=== PATIENT | male | born 1985 | race Two or more races ===

== ENCOUNTER 2017-01-27 10:52 | Inpatient (IN) | payer OTHER ==
[2017-01-27 11:40] VITALS: BMI 25.4
--- NOTE | 2017-01-27 12:33 | HP ---
CIWA Score - CIWA Score Nausea/Vomitin Muscle Tremors: 3 Anxiety: 3 Agitation: 3 Paroxysmal Sweats: 1-Minimal Palms Moist Orientation: 0-Oriented Tacttile Disturbances: 2-Mild Itch/Numbness/Burn Auditory Disturbances: 2-Mild Harshness/Frighten Visual Disturbances: 2-Mild Sensitivity Headache: 2-Mild CIWA-Ar Total Score: 21 Admission ROS [facility] - HPI Chief Complaint: I NEED HELP TO STOP DRINKING ALCOHOL Allergies/Adverse Reactions: Allergies Allergy/AdvReac Type Severity Reaction Status Date / Time No Known Allergies Allergy Verified 01/27/17 11:44 History of Present Illness: THIS 31 YEARS OLD MALE WITH ALCOHOL DEPENDENCE,SEEKING DETOX FROM ALCOHOL,LAST DETOX [facility] IN 12/28 SEIZURE ALCOHOL RELATED SEVERAL ADMISSIONS IN DETOX NO SIGNIFICANT PERIOD OF SOBRIETY - Ebola screening Have you traveled outside of the country in the last 21 days: No Have you had contact with anyone from an Ebola affected area: No Have you been sick,other than usual withdrawal symptoms: No - Review of Systems Constitutional: Loss of Appetite, Malaise, Night Sweats, Changes in sleep, Weakness EENT: reports: Nose Congestion Respiratory: reports: No Symptoms reported Cardiac: reports: Palpitations GI: reports: Diarrhea, Nausea, Vomiting, Abdominal cramping : reports: No Symptoms Reported Musculoskeletal: reports: Back Pain, Muscle Pain Integumentary: reports: Dryness Neuro: reports: Headache, Tremors Endocrine: reports: No Symptoms Reported Hematology: reports: No Symptoms Reported Psychiatric: reports: Anxious, Depressed Patient History - Patient Medical History Hx Anemia: No Hx Asthma: No Hx Chronic Obstructive Pulmonary Disease (COPD): No Hx Cancer: No Hx Cardiac Disorders: No Hx Congestive Heart Failure: No Hx Hypertension: No Hx Hypercholesterolemia: No Hx Pacemaker: No HX Cerebrovascular Accident: No Hx Seizures: Yes (etoh related last was 4 days ago) Hx Dementia: No Hx Diabetes: No Hx Gastrointestinal Disorders: No Hx Liver Disease: No Hx Genitourinary Disorders: No Hx Sexually Transmitted Disorders: No Hx Renal Disease (ESRD): No Hx Thyroid Disease: No Hx Human Immunodeficiency Virus (HIV): No (LAST 08/28) Hx Hepatitis C: No Hx Depression: Yes (ANXIETY) Hx Suicide Attempt: No Hx Bipolar Disorder: No Hx Schizophrenia: No Other Medical History: NO SUICIDAL,NO HOMICIDAL - Patient Surgical History Past Surgical History: No - PPD History Previous Implant?: Yes Documented Results: Negative w/o proof Implanted On Prior [facility] Admission?: No PPD to be Administered?: Yes - Smoking Cessation Smoking history: Current every day smoker Have you smoked in the past 12 months: Yes Aproximately how many cigarettes per day: 20 Hx Chewing Tobacco Use: No Initiated information on smoking cessation: Yes 'Breaking Loose' booklet given: 01/27/17 - Substance & Tx. History Hx Alcohol Use: Yes Hx Substance Use: No Substance Use Type: Alcohol Hx Substance Use Treatment: No - Substances Abused Alcohol Route: Oral Frequency: Daily Amount used: 1/2 liter vodka Age of first use: 16 Date of Last Use: 01/27/17 Family Disease History - Family Disease History Family History: Denies Admission Physical Exam [facility] - Vital Signs Vital Signs: Vital Signs - 24 hr 01/27/17 11:38 Temperature 99.4 F Pulse Rate 106 H Respiratory 20 Rate Blood Pressure 149/93 - Physical General Appearance: Yes: Moderate Distress, Tremorous, Irritable, Sweating, Anxious HEENTM: Yes: Normal ENT Inspection, [place], Pharynx Normal Respiratory: Yes: Within Normal Limits, Lungs Clear, No Respiratory Distress Neck: Yes: Within Normal Limits, Supple, Trachea in good position Breast: Yes: Within Normal Limits Cardiology: Yes: Tachycardia Abdominal: Yes: Within Normal Limits, Normal Bowel Sounds, Non Tender, Flat, Soft Genitourinary: Yes: Within Normal Limits Back: Yes: Normal Inspection, Muscle Spasm Musculoskeletal: Yes: full range of Motion, Back pain, Muscle Pain Extremities: Yes: Tremors Neurological: Yes: foot roentgenologist II-XII NML intact, Fully Oriented, Alert, Motor Strength 5/5 Integumentary: Yes: Dry Lymphatic: Yes: Within Normal Limits - Diagnostic (1) Alcohol dependence with uncomplicated withdrawal Current Visit: Yes Status: Acute (2) Alcohol dependence with uncomplicated intoxication Current Visit: Yes Status: Acute (3) Alcohol related seizure Current Visit: Yes Status: Acute (4) Syncope Current Visit: Yes Status: Acute (5) Nicotine dependence Current Visit: Yes Status: Acute (6) Anxiety and depression Current Visit: Yes Status: Acute Cleared for Admission [facility] - Detox or Rehab [facility] Level of Care: Medically Managed Detox Regimen/Protocol: Librium [facility] Breath Alcohol Content Breath Alcohol Content: 0.325 Urine Drug Screen - Results Drug Screen Negative: No Urine Drug Screen Results: BZO-Benzodiazepines
[2017-01-27] MEDS ORDERED: guaiFENesin/D-METHORPHAN HB 10 ML UNIT-DOSE CUPS PO PRN (12:41)
[2017-01-27] MEDS ORDERED: hydrOXYzine PAMOATE 50 MG CAPSULE (FP) PO PRN (12:41)
[2017-01-27] MEDS ORDERED: LOPERAMIDE HCL 2 MG CAPSULE PO PRN (12:41)
[2017-01-27] MEDS ORDERED: MAGNESIUM CITRATE 300 ML BOTTLE PO PRN (12:41)
[2017-01-27] MEDS ORDERED: MENTHOL/PHENOL 1 EACH UD MM PRN (12:41)
[2017-01-27] MEDS ORDERED: P-EPHED 60MG/TRIPROLIDI 2.5MG TABLET PO PRN (12:41)
[2017-01-27] MEDS ORDERED: IBUPROFEN 400 MG TABLET (FP) PO PRN (12:41)
[2017-01-27] MEDS ORDERED: chlordiazePOXIDE HCL 25 MG CAPSULE PO PRN (12:41)
[2017-01-27] MEDS ORDERED: MAGNESIUM HYDROX 2400MG/30ML ORAL SUSPENSION 30 ML CUP PO PRN (12:41)
[2017-01-27] MEDS ORDERED: ACETAMINOPHEN 325 MG TABLET (FP) PO PRN (12:41)
[2017-01-27] MEDS ORDERED: chlordiazePOXIDE HCL 25 MG CAPSULE PO ONE (12:45)
[2017-01-27] MEDS: NICOTINE 21 MG/24 HOURS TOPICAL PATCH TD SCH (13:27)
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
[2017-01-27] MEDS: MAG HYDROX/AL HYDROX/SIMETH 30 ML UNIT-DOSE CUP PO PRN ×2 (16:09→22:17)
[2017-01-27] MEDS: chlordiazePOXIDE HCL 25 MG CAPSULE PO SCH ×2 (17:08→22:16)
[2017-01-27] MEDS: NICOTINE POLACRILEX 2 MG GUM BUC PRN (17:11)
[2017-01-27 17:52] LABS: URINE APPEARANCE CLEAR; URINE BILIRUBIN NEGATIVE (NEGATIVE); URINE COLOR YELLOW; URINE GLUCOSE (UA) NEGATIVE (NEGATIVE); URINE KETONE NEGATIVE (NEGATIVE); URINE LEUK ESTERASE NEGATIVE (NEGATIVE); URINE NITRITE NEGATIVE (NEGATIVE); URINE PROTEIN NEGATIVE (NEGATIVE); URINE UROBILINOGEN 2.0 E.U/dl E.U./dl (0.2-1.0)
[2017-01-27 17:58] LABS: URINE BLOOD 1+ (NEGATIVE)
[2017-01-27 17:59] LABS: URINE WBC 1 /hpf (3-5)
[2017-01-27] MEDS ORDERED: RANITIDINE HCL 150 MG TABLET (FP) PO ONE (19:00)
[2017-01-27] MEDS: QUEtiapine FUMARATE 50 MG TABLET PO SCH (22:16)
[2017-01-27] MEDS: diphenhydrAMINE HCL 50 MG CAPSULE PO PRN (22:16)
[2017-01-27] MEDS: THIAMINE HCL 100 MG TABLET (FP) PO SCH (22:16)
[2017-01-28] MEDS: chlordiazePOXIDE HCL 25 MG CAPSULE PO SCH ×4 (05:13→22:18)
[2017-01-28] MEDS: MAG HYDROX/AL HYDROX/SIMETH 30 ML UNIT-DOSE CUP PO PRN ×2 (05:14→15:32)
[2017-01-28] MEDS ORDERED: TETRAHYDROZOLINE HCL 1 DROP DROPS OU PRN (08:42)
[2017-01-28 10:18] LABS: ALBUMIN 3.6 g/dl (3.4-5.0); ALK PHOS 175 U/L (45-117); ANION GAP 11 (8-16); CALCIUM 9.1 mg/dL (8.5-10.1); CO2 30 mmol/L (21-32); COCKROFT - GAULT 144.92; CREATININE 0.8 mg/dL (0.7-1.3); GLUCOSE,RANDOM 67 mg/dL (74-106); SGOT/AST 322 U/L (15-37); SGPT/ALT 276 U/L (12-78); TOT PROT 6.6 g/dl (6.4-8.2)
[2017-01-28] MEDS: PRENATAL VITAMINS W/ FOLIC ACID TABLET (FP) PO SCH (10:22)
[2017-01-28] MEDS: NICOTINE 21 MG/24 HOURS TOPICAL PATCH TD SCH (10:24)
[2017-01-28 10:27] LABS: MCH 31.8 pg (25.7-33.7); MCHC 33.6 g/dl (32.0-35.9); MEAN CELL VOLUME 94.6 fl (80-96); PLATELET COUNT 61 K/MM3 (134-434); RDW 14.5 % (11.9-15.9); WHITE BLOOD COUNT 4.5 K/mm3 (4.0-10.0)
--- NOTE | 2017-01-28 11:39 | EKG ---
Test Reason : Blood Pressure : / mmHG Vent. Rate : 091 BPM Atrial Rate : 091 BPM P-R Int : 138 ms QRS Dur : 092 ms QT Int : 336 ms P-R-T Axes : 070 067 057 degrees QTc Int : 413 ms NORMAL SINUS RHYTHM NORMAL ECG NO PREVIOUS ECGS AVAILABLE Confirmed by ARNAV OTT, MARLENY ([id number]) on 01/28/2017 11:38:43 AM Referred By: Confirmed By:MARLENY JOSÉ MD
--- NOTE | 2017-01-28 12:52 | PN ---
[facility] CIWA - CIWA Score Nausea/Vomitin-Mild Nausea/No Vomiting Muscle Tremors: 4-Moderate,w/Arms Extend Anxiety: 4-Mod. Anxious/Guarded Agitation: 3 Paroxysmal Sweats: 3 Orientation: 0-Oriented Tacttile Disturbances: 3-Moderate Itch/Numb/Burn Auditory Disturbances: 0-None Visual Disturbances: 3-Moderate Sensitivity Headache: 0-None Present CIWA-Ar Total Score: 21 S Progress Note (SOAP) Subjective: Tremors, Dry Eyes, Diarrhea, Interrupted Sleep. Objective: PT. A & O X 3, OBSERVED AMBULATING ON UNIT. 01/28/17 12:49 Vital Signs Temperature 96.6 F L 01/28/17 09:39 Pulse Rate 95 H 01/28/17 09:39 Respiratory Rate 20 01/28/17 09:39 Blood Pressure 143/84 01/28/17 09:39 O2 Sat by Pulse Oximetry (%) Laboratory Last Values WBC 4.5 K/mm3 (4.0-10.0) 01/28/17 07:00 RBC 4.57 M/mm3 (4.00-5.60) 01/28/17 07:00 Hgb 14.6 GM/dL (11.7-16.9) 01/28/17 07:00 Hct 43.3 % (35.4-49) 01/28/17 07:00 MCV 94.6 fl (80-96) 01/28/17 07:00 MCHC 33.6 g/dl (32.0-35.9) 01/28/17 07:00 RDW 14.5 % (11.9-15.9) 01/28/17 07:00 Plt Count 61 K/MM3 (134-434) L 01/28/17 07:00 MPV 9.0 fl (7.5-11.1) 01/28/17 07:00 Sodium 141 mmol/L (136-145) 01/28/17 07:00 Potassium 3.4 mmol/L (3.5-5.1) L 01/28/17 07:00 Chloride 100 mmol/L (98-107) 01/28/17 07:00 Carbon Dioxide 30 mmol/L (21-32) 01/28/17 07:00 Anion Gap 11 (8-16) 01/28/17 07:00 BUN 8 mg/dL (7-18) 01/28/17 07:00 Creatinine 0.8 mg/dL (0.7-1.3) 01/28/17 07:00 Creat Clearance w eGFR > 60 (>60) 01/28/17 07:00 Random Glucose 67 mg/dL (74-106) L 01/28/17 07:00 Calcium 9.1 mg/dL (8.5-10.1) 01/28/17 07:00 Total Bilirubin 1.0 mg/dL (0.2-1.0) 01/28/17 07:00 AST 322 U/L (15-37) H 01/28/17 07:00 ALT 276 U/L (12-78) H 01/28/17 07:00 Alkaline Phosphatase 175 U/L (45-117) H 01/28/17 07:00 Total Protein 6.6 g/dl (6.4-8.2) 01/28/17 07:00 Albumin 3.6 g/dl (3.4-5.0) 01/28/17 07:00 Urine Color Yellow 01/27/17 14:35 Urine Appearance Clear 01/27/17 14:35 Urine pH 7.0 (5.0-8.0) 01/27/17 14:35 Ur Specific [place] <= 1.005 (1.005-1.025) 01/27/17 14:35 Urine Protein Negative (NEGATIVE) 01/27/17 14:35 Urine Glucose (UA) Negative (NEGATIVE) 01/27/17 14:35 Urine Ketones Negative (NEGATIVE) 01/27/17 14:35 Urine Blood 1+ (NEGATIVE) H 01/27/17 14:35 Urine Nitrite Negative (NEGATIVE) 01/27/17 14:35 Urine Bilirubin Negative (NEGATIVE) 01/27/17 14:35 Urine Urobilinogen 2.0 e.u/dl E.U./dl (0.2-1.0) 01/27/17 14:35 Ur Leukocyte Esterase Negative (NEGATIVE) 01/27/17 14:35 Urine RBC None /hpf (0-3) 01/27/17 14:35 Urine WBC 1 /hpf (3-5) 01/27/17 14:35 LABS NOTED. Assessment: 01/28/17 12:51 WITHDRAWAL SYMPTOMS. Plan: CONTINUE DETOX. K, 20 MEQ PO X 1 NOW, THEN 20 MEQ PO BID AFTER. ADVISED PATIENT TO FOLLOW-UP WITH PHARMACOLOGIST AFTER DISCHARGE FROM DETOX FOR GENERAL MEDICAL ASSESSMENT AND FOR ABNORMAL DETOX ADMISSION LAB VALUES.
[2017-01-28] MEDS ORDERED: POTASSIUM CHLORIDE TABS 20 MEQ TABLET.ER (FP) PO ONE (13:15)
[2017-01-28] MEDS: POTASSIUM CHLORIDE TABS 20 MEQ TABLET.ER (FP) PO SCH (17:17)
[2017-01-28] MEDS: THIAMINE HCL 100 MG TABLET (FP) PO SCH (22:18)
[2017-01-28] MEDS: QUEtiapine FUMARATE 50 MG TABLET PO SCH (22:18)
[2017-01-28] MEDS: diphenhydrAMINE HCL 50 MG CAPSULE PO PRN (22:19)
[2017-01-29] MEDS: chlordiazePOXIDE HCL 25 MG CAPSULE PO SCH ×2 (05:28→10:10)
[2017-01-29] MEDS: MAG HYDROX/AL HYDROX/SIMETH 30 ML UNIT-DOSE CUP PO PRN ×3 (05:30→17:27)
[2017-01-29] MEDS: NICOTINE POLACRILEX 2 MG GUM BUC PRN ×2 (07:42→09:42)
[2017-01-29] MEDS: POTASSIUM CHLORIDE TABS 20 MEQ TABLET.ER (FP) PO SCH ×2 (10:10→17:24)
[2017-01-29] MEDS: NICOTINE 21 MG/24 HOURS TOPICAL PATCH TD SCH (10:10)
[2017-01-29] MEDS: PRENATAL VITAMINS W/ FOLIC ACID TABLET (FP) PO SCH (10:10)
[2017-01-29 10:18] LABS: BASOPHIL 0.4 % (0-2.0); EOSINOPHIL 1.1 % (0-4.5); MCH 31.7 pg (25.7-33.7); MCHC 33.4 g/dl (32.0-35.9); MEAN CELL VOLUME 94.9 fl (80-96); MEAN PLT VOLUME 9.5 fl (7.5-11.1); NEUTROPHILS 67.1 % (42.8-82.8); PLATELET COUNT 71 K/MM3 (134-434); RDW 14.7 % (11.9-15.9); WHITE BLOOD COUNT 4.3 K/mm3 (4.0-10.0)
--- NOTE | 2017-01-29 12:06 | PN ---
[facility] CIWA - CIWA Score Nausea/Vomitin Muscle Tremors: 4-Moderate,w/Arms Extend Anxiety: 4-Mod. Anxious/Guarded Agitation: 2 Paroxysmal Sweats: 3 Orientation: 0-Oriented Tacttile Disturbances: 0-None Auditory Disturbances: 3-Moderate Harsh/Frighten Visual Disturbances: 2-Mild Sensitivity Headache: 0-None Present CIWA-Ar Total Score: 20 BHS Progress Note (SOAP) Subjective: Tremors, Back Ache, Interrupted Sleep, Sweating. Objective: PT. A & O X 3, OBSERVED AMBULATING ON UNIT. 01/29/17 12:01 Vital Signs Temperature 98.4 F 01/29/17 09:58 Pulse Rate 91 H 01/29/17 09:58 Respiratory Rate 18 01/29/17 09:58 Blood Pressure 130/81 01/29/17 09:58 O2 Sat by Pulse Oximetry (%) Laboratory Last Values WBC 4.3 K/mm3 (4.0-10.0) 01/29/17 07:00 RBC 4.97 M/mm3 (4.00-5.60) 01/29/17 07:00 Hgb 15.8 GM/dL (11.7-16.9) 01/29/17 07:00 Hct 47.2 % (35.4-49) 01/29/17 07:00 MCV 94.9 fl (80-96) 01/29/17 07:00 MCHC 33.4 g/dl (32.0-35.9) 01/29/17 07:00 RDW 14.7 % (11.9-15.9) 01/29/17 07:00 Plt Count 71 K/MM3 (134-434) L 01/29/17 07:00 MPV 9.5 fl (7.5-11.1) 01/29/17 07:00 Neutrophils % 67.1 % (42.8-82.8) 01/29/17 07:00 Lymphocytes % 21.7 % (8-40) 01/29/17 07:00 Monocytes % 9.7 % (3.8-10.2) 01/29/17 07:00 Eosinophils % 1.1 % (0-4.5) 01/29/17 07:00 Basophils % 0.4 % (0-2.0) 01/29/17 07:00 Sodium 141 mmol/L (136-145) 01/28/17 07:00 Potassium 3.4 mmol/L (3.5-5.1) L 01/28/17 07:00 Chloride 100 mmol/L (98-107) 01/28/17 07:00 Carbon Dioxide 30 mmol/L (21-32) 01/28/17 07:00 Anion Gap 11 (8-16) 01/28/17 07:00 BUN 8 mg/dL (7-18) 01/28/17 07:00 Creatinine 0.8 mg/dL (0.7-1.3) 01/28/17 07:00 Creat Clearance w eGFR > 60 (>60) 01/28/17 07:00 Random Glucose 67 mg/dL (74-106) L 01/28/17 07:00 Calcium 9.1 mg/dL (8.5-10.1) 01/28/17 07:00 Total Bilirubin 1.0 mg/dL (0.2-1.0) 01/28/17 07:00 AST 322 U/L (15-37) H 01/28/17 07:00 ALT 276 U/L (12-78) H 01/28/17 07:00 Alkaline Phosphatase 175 U/L (45-117) H 01/28/17 07:00 Total Protein 6.6 g/dl (6.4-8.2) 01/28/17 07:00 Albumin 3.6 g/dl (3.4-5.0) 01/28/17 07:00 Urine Color Yellow 01/27/17 14:35 Urine Appearance Clear 01/27/17 14:35 Urine pH 7.0 (5.0-8.0) 01/27/17 14:35 Ur Specific [place] <= 1.005 (1.005-1.025) 01/27/17 14:35 Urine Protein Negative (NEGATIVE) 01/27/17 14:35 Urine Glucose (UA) Negative (NEGATIVE) 01/27/17 14:35 Urine Ketones Negative (NEGATIVE) 01/27/17 14:35 Urine Blood 1+ (NEGATIVE) H 01/27/17 14:35 Urine Nitrite Negative (NEGATIVE) 01/27/17 14:35 Urine Bilirubin Negative (NEGATIVE) 01/27/17 14:35 Urine Urobilinogen 2.0 e.u/dl E.U./dl (0.2-1.0) 01/27/17 14:35 Ur Leukocyte Esterase Negative (NEGATIVE) 01/27/17 14:35 Urine RBC None /hpf (0-3) 01/27/17 14:35 Urine WBC 1 /hpf (3-5) 01/27/17 14:35 RPR Titer Nonreactive (NONREACTIVE) 01/28/17 07:00 LABS NOTED. Assessment: 01/29/17 12:03 WITHDRAWAL SYMPTOMS. Plan: CONTINUE DETOX.
[2017-01-29] MEDS: PANTOPRAZOLE 40 MG TABLET (FP) PO SCH (12:11)
[2017-01-29] MEDS: chlordiazePOXIDE 5 MG CAPSULE PO SCH ×2 (17:24→22:31)
[2017-01-29] MEDS: QUEtiapine FUMARATE 50 MG TABLET PO SCH (22:31)
[2017-01-29] MEDS: THIAMINE HCL 100 MG TABLET (FP) PO SCH (22:31)
[2017-01-29] MEDS: diphenhydrAMINE HCL 50 MG CAPSULE PO PRN (22:31)
[2017-01-30] MEDS: chlordiazePOXIDE 5 MG CAPSULE PO SCH ×2 (05:59→10:22)
[2017-01-30 10:10] LABS: ALBUMIN 3.5 g/dl (3.4-5.0); ANION GAP 8 (8-16); BILIRUBIN,TOTAL 0.7 mg/dL (0.2-1.0); CALCIUM 8.9 mg/dL (8.5-10.1); CO2 29 mmol/L (21-32); CREATININE 1.1 mg/dL (0.7-1.3); GLUCOSE,RANDOM 136 mg/dL (74-106); SGOT/AST 211 U/L (15-37); SGPT/ALT 236 U/L (12-78); TOT PROT 6.8 g/dl (6.4-8.2)
[2017-01-30 10:11] LABS: ALK PHOS 207 U/L (45-117)
[2017-01-30 10:15] LABS: INR 0.89 (0.82-1.09); PROTHROMBIN TIME (PATIENT) 9.8 SEC (9.98-11.88)
[2017-01-30] MEDS: PRENATAL VITAMINS W/ FOLIC ACID TABLET (FP) PO SCH (10:22)
[2017-01-30] MEDS: POTASSIUM CHLORIDE TABS 20 MEQ TABLET.ER (FP) PO SCH ×2 (10:22→17:33)
[2017-01-30] MEDS: PANTOPRAZOLE 40 MG TABLET (FP) PO SCH (10:22)
[2017-01-30] MEDS: NICOTINE 21 MG/24 HOURS TOPICAL PATCH TD SCH (10:22)
[2017-01-30] MEDS: chlordiazePOXIDE HCL 10 MG CAPSULE PO SCH ×2 (17:33→22:21)
--- NOTE | 2017-01-30 18:54 | PN ---
[facility] Progress Note (SOAP) Subjective: Anxious, Interrupted Sleep, Tremors. Objective: PT. A & O X 3, OBSERVED AMBULATING ON UNIT. 01/30/17 18:50 Vital Signs Temperature 97.2 F L 01/30/17 13:11 Pulse Rate 92 H 01/30/17 13:11 Respiratory Rate 01/30/17 13:11 Blood Pressure 153/96 01/30/17 13:11 O2 Sat by Pulse Oximetry (%) Laboratory Tests 01/27/17 01/28/17 01/28/17 14:35 07:00 07:00 WBC 4.5 RBC 4.57 Hgb 14.6 Hct 43.3 MCV 94.6 MCHC 33.6 RDW 14.5 Plt Count 61 L MPV 9.0 Neutrophils % Lymphocytes % Monocytes % Eosinophils % Basophils % INR Sodium 141 Potassium 3.4 L Chloride 100 Carbon Dioxide 30 Anion Gap 11 BUN 8 Creatinine 0.8 Creat Clearance w eGFR > 60 Random Glucose 67 L Calcium 9.1 Total Bilirubin 1.0 AST 322 H ALT 276 H Alkaline Phosphatase 175 H Total Protein 6.6 Albumin 3.6 Urine Color Yellow Urine Appearance Clear Urine pH 7.0 Ur Specific [place] <= 1.005 Urine Protein Negative Urine Glucose (UA) Negative Urine Ketones Negative Urine Blood 1+ H Urine Nitrite Negative Urine Bilirubin Negative Urine Urobilinogen 2.0 e.u/dl Ur Leukocyte Esterase Negative Urine RBC None Urine WBC 1 RPR Titer 01/28/17 01/29/17 01/30/17 07:00 07:00 07:50 WBC 4.3 RBC 4.97 Hgb 15.8 Hct 47.2 MCV 94.9 MCHC 33.4 RDW 14.7 Plt Count 71 L MPV 9.5 Neutrophils % 67.1 Lymphocytes % 21.7 Monocytes % 9.7 Eosinophils % 1.1 Basophils % 0.4 INR Sodium 143 Potassium 4.3 D Chloride 106 Carbon Dioxide 29 Anion Gap 8 BUN 10 D Creatinine 1.1 D Creat Clearance w eGFR > 60 Random Glucose 136 H D Calcium 8.9 Total Bilirubin 0.7 D AST 211 H D ALT 236 H Alkaline Phosphatase 207 H Total Protein 6.8 Albumin 3.5 Urine Color Urine Appearance Urine pH Ur Specific [place] Urine Protein Urine Glucose (UA) Urine Ketones Urine Blood Urine Nitrite Urine Bilirubin Urine Urobilinogen Ur Leukocyte Esterase Urine RBC Urine WBC RPR Titer Nonreactive 01/30/17 09:00 WBC RBC Hgb Hct MCV MCHC RDW Plt Count MPV Neutrophils % Lymphocytes % Monocytes % Eosinophils % Basophils % INR 0.89 Sodium Potassium Chloride Carbon Dioxide Anion Gap BUN Creatinine Creat Clearance w eGFR Random Glucose Calcium Total Bilirubin AST ALT Alkaline Phosphatase Total Protein Albumin Urine Color Urine Appearance Urine pH Ur Specific [place] Urine Protein Urine Glucose (UA) Urine Ketones Urine Blood Urine Nitrite Urine Bilirubin Urine Urobilinogen Ur Leukocyte Esterase Urine RBC Urine WBC RPR Titer LABS NOTED. Assessment: 01/30/17 18:53 WITHDRAWAL SYMPTOMS. Plan: CONTINUE DETOX. ADVISED PATIENT TO FOLLOW-UP WITH STAFF NURSE MIDWIFE AFTER DISCHARGE FROM DETOX FOR GENERAL MEDICAL ASSESSMENT AND FOR ABNORMAL ADMISSION [facility] VALUES.
[2017-01-30] MEDS: THIAMINE HCL 100 MG TABLET (FP) PO SCH (22:21)
[2017-01-30] MEDS: QUEtiapine FUMARATE 50 MG TABLET PO SCH (22:21)
[2017-01-30] MEDS: diphenhydrAMINE HCL 50 MG CAPSULE PO PRN (22:22)
[2017-01-30 22:36] VITALS: PULSE 90
[2017-01-31] MEDS: chlordiazePOXIDE HCL 10 MG CAPSULE PO SCH (05:38)
[2017-01-31 06:35] VITALS: BP 125/82; TEMP 96.4
[2017-01-31] MEDS: POTASSIUM CHLORIDE TABS 20 MEQ TABLET.ER (FP) PO SCH (09:04)
[2017-01-31] MEDS: PANTOPRAZOLE 40 MG TABLET (FP) PO SCH (09:04)
[2017-01-31] MEDS: PRENATAL VITAMINS W/ FOLIC ACID TABLET (FP) PO SCH (09:04)
[2017-01-31] MEDS: NICOTINE 21 MG/24 HOURS TOPICAL PATCH TD SCH (09:04)
--- NOTE | 2017-01-31 13:54 | DS ---
[facility] Detox Discharge Summary Admission Date: 01/27/17 Discharge Date: 01/31/17 - History Present History: Alcohol Dependence Pertinent Past History: Alcohol related seizure disorder - Physical Exam Results Vital Signs: Vital Signs Temperature 96.4 F L 01/31/17 06:35 Pulse Rate 90 01/31/17 06:35 Respiratory Rate 18 01/31/17 06:35 Blood Pressure 125/82 01/31/17 06:35 O2 Sat by Pulse Oximetry (%) Pertinent Admission Physical Exam Findings: Withdrawal symptoms Laboratory Tests 01/27/17 01/28/17 01/28/17 14:35 07:00 07:00 WBC 4.5 RBC 4.57 Hgb 14.6 Hct 43.3 MCV 94.6 MCHC 33.6 RDW 14.5 Plt Count 61 L MPV 9.0 Neutrophils % Lymphocytes % Monocytes % Eosinophils % Basophils % INR Sodium 141 Potassium 3.4 L Chloride 100 Carbon Dioxide 30 Anion Gap 11 BUN 8 Creatinine 0.8 Creat Clearance w eGFR > 60 Random Glucose 67 L Calcium 9.1 Total Bilirubin 1.0 AST 322 H ALT 276 H Alkaline Phosphatase 175 H Total Protein 6.6 Albumin 3.6 Urine Color Yellow Urine Appearance Clear Urine pH 7.0 Ur Specific [place] <= 1.005 Urine Protein Negative Urine Glucose (UA) Negative Urine Ketones Negative Urine Blood 1+ H Urine Nitrite Negative Urine Bilirubin Negative Urine Urobilinogen 2.0 e.u/dl Ur Leukocyte Esterase Negative Urine RBC None Urine WBC 1 RPR Titer 01/28/17 01/29/17 01/30/17 07:00 07:00 07:50 WBC 4.3 RBC 4.97 Hgb 15.8 Hct 47.2 MCV 94.9 MCHC 33.4 RDW 14.7 Plt Count 71 L MPV 9.5 Neutrophils % 67.1 Lymphocytes % 21.7 Monocytes % 9.7 Eosinophils % 1.1 Basophils % 0.4 INR Sodium 143 Potassium 4.3 D Chloride 106 Carbon Dioxide 29 Anion Gap 8 BUN 10 D Creatinine 1.1 D Creat Clearance w eGFR > 60 Random Glucose 136 H D Calcium 8.9 Total Bilirubin 0.7 D AST 211 H D ALT 236 H Alkaline Phosphatase 207 H Total Protein 6.8 Albumin 3.5 Urine Color Urine Appearance Urine pH Ur Specific [place] Urine Protein Urine Glucose (UA) Urine Ketones Urine Blood Urine Nitrite Urine Bilirubin Urine Urobilinogen Ur Leukocyte Esterase Urine RBC Urine WBC RPR Titer Nonreactive 01/30/17 09:00 WBC RBC Hgb Hct MCV MCHC RDW Plt Count MPV Neutrophils % Lymphocytes % Monocytes % Eosinophils % Basophils % INR 0.89 Sodium Potassium Chloride Carbon Dioxide Anion Gap BUN Creatinine Creat Clearance w eGFR Random Glucose Calcium Total Bilirubin AST ALT Alkaline Phosphatase Total Protein Albumin Urine Color Urine Appearance Urine pH Ur Specific [place] Urine Protein Urine Glucose (UA) Urine Ketones Urine Blood Urine Nitrite Urine Bilirubin Urine Urobilinogen Ur Leukocyte Esterase Urine RBC Urine WBC RPR Titer Labs noted - Treatment Hospital Course: Detox Protocol Followed, Detoxed Safely, Responded well, Discharged Condition Good - Medication Discharge Medications: Ambulatory Orders NK [No Known Home Medication] 01/27/17 - Diagnosis (1) Alcohol dependence with uncomplicated withdrawal Status: Acute (2) Alcohol related seizure Status: Chronic (3) Anxiety and depression Status: Chronic (4) Nicotine dependence Status: Chronic Qualifiers: Nicotine product type: cigarettes - AMA Did Patient Leave Against Medical Advice: No
== END 2017-01-31 09:14 | disposition home or self-care (01) | DRG 775 ==
LOC: YASAS 10:52 → Y3N 12:39
PROVIDERS: ADMIT Internal Medicine Addiction Medicine; ATTEND Internal Medicine Addiction Medicine
PROC: HZ2ZZZZ Detoxification Services for Substance Abuse Treatment (ICD-10-PCS; principal; 2017-01-27)
DX: F10.230 Alcohol dependence with withdrawal, uncomplicated (principal); F10.24 Alcohol dependence with alcohol-induced mood disorder; F17.210 Nicotine dependence, cigarettes, uncomplicated; F41.8 Other specified anxiety disorders; R00.0 Tachycardia, unspecified; G47.00 Insomnia, unspecified; Z86.69 Personal history of other diseases of the nervous system and sense organs; Z86.79 Personal history of other diseases of the circulatory system
CPT/HCPCS: 36415; 80053; 81003; 81015; 85025; 85027; 85610; 86593; 93005; 93010